=== PATIENT | male | born 1975 | race Caucasian/White ===

== ENCOUNTER 2019-08-30 14:14 | Emergency (ER) | payer SELFPAY ==
[~2019-08-30] VITALS: Ht 190.5 cm; Wt 204.1 kg
[2019-08-30 14:35] VITALS: BP 175/84
--- NOTE | 2019-08-30 14:37 | NUR ---
ED Nurse Note: Pt ambulated to ED d/t cough and sore throat x 2 days. VSS, on RA. ERPA on bedside.
[2019-08-30] MEDS ORDERED: Azithromycin 250mg tab ORAL ONE (14:45)
[2019-08-30] MEDS ORDERED: Oseltamivir 75mg cap ORAL SCH (14:45)
[2019-08-30] MEDS: Albuterol/Ipratropium 3ml neb HHN SCH ×2 (14:55→15:05)
--- NOTE | 2019-08-30 14:55 | NUR ---
ED Nurse Note: RT at bedside.
--- NOTE | 2019-08-30 15:48 | Diagnostic Imaging Report ---
Indication: Dyspnea Comparison: None A single view chest radiograph was obtained. Findings: Mild pulmonary vascular congestion demonstrated. The heart is enlarged. Bones are unremarkable. No pleural effusion seen. IMPRESSION: Suspected mild CHF
--- NOTE | 2019-08-30 15:50 | Emergency Room Report ---
History of Present Illness General Chief Complaint: Upper Respiratory Illness Source: Patient Present Illness HPI 43-year-old morbidly obese male who claims to have no significant past medical history and heavy tobacco smoker here complaining of 2 days of generalized body ache, cough and congestion. Complains of phlegm production and wheezing. Is requesting breathing treatment. Patient also complains of 2 weeks of suprapubic rash that started after being in the [facility]. Denies recent travel. Is in no apparent distress. Also reports that he has not been seen by primary doctor in many years. Is requesting something to help him sleep. I explained to patient that patient may be having sleep apnea secondary to morbid obesity and is not advised to take any sleeping medication as may mask his breathing being compromised and be dangerous toward him. Patient agrees. Denies abdominal pain, nausea vomiting at this time. Has not taken medication for symptom relief. Allergies: Coded Allergies: No Known Allergies (Unverified , 08/30/19) Patient History Past Medical History: see triage record Past Surgical History: unable to obtain Pertinent Family History: none Social History: Reports: smoking Immunizations: UTD Reviewed Nursing Documentation: PMH: Agreed; PSxH: Agreed Nursing Documentation-PMH Past Medical History: No History, Except For Review of Systems All Other Systems: negative except mentioned in HPI Physical Exam Vital Signs Date Time Temp Pulse Resp B/P (MAP) Pulse Ox O2 Delivery O2 Flow Rate FiO2 08/30/19 14:28 98.4 75 20 175/84 (114) 94 Room Air 08/30/19 14:59 21 Sp02 EP Interpretation: reviewed, normal General Appearance: alert, GCS 15, non-toxic, mild distress, obese Head: normocephalic, atraumatic ENT: hearing grossly normal, normal pharynx, no angioedema, normal voice Neck: full range of motion, supple/symm/no masses Respiratory: chest non-tender, lungs clear, normal breath sounds, no rhonchi, no respiratory distress, no wheezing, speaking full sentences Cardiovascular #1: regular rate, rhythm, no edema, no murmur Gastrointestinal: normal bowel sounds, non tender, soft, non-distended, no guarding, no rebound Genitourinary: no CVA tenderness, other - Folliculitis of suprapubic region is noted Musculoskeletal: back normal, no calf tenderness Psychiatric: judgement/insight normal Skin: other - Folliculitis suprapubic Lymphatic: no adenopathy Medical Decision Making PA Attestation All diagnoses and treatment plans were reviewed and discussed with my supervising physician Dr. Juarez Diagnostic Impression: Primary Impression: Pneumonitis Additional Impressions: Fungal infection Folliculitis Cardiomegaly ER Course 43-year-old morbidly obese male who claims to have no significant past medical history and heavy tobacco smoker here complaining of 2 days of generalized body ache, cough and congestion. Complains of phlegm production and wheezing. Is requesting breathing treatment. Patient also complains of 2 weeks of suprapubic rash that started after being in the [facility]. Denies recent travel. Is in no apparent distress. Also reports that he has not been seen by primary doctor in many years. Is requesting something to help him sleep. I explained to patient that patient may be having sleep apnea secondary to morbid obesity and is not advised to take any sleeping medication as may mask his breathing being compromised and be dangerous toward him. Patient agrees. Denies abdominal pain, nausea vomiting at this time. Has not taken medication for symptom relief. Ddx considered but are not limited to: bronchitis, PNA, URI viral, bacterial bronchitis, pneumonitis, folliculitis, urinary tract infection, STD Vital signs: are WNL, pt. is afebrile H&PE are most consistent with: Incidental finding of cardiomegaly, pneumonitis, folliculitis secondary to bacterial and fungal infection of the suprapubic area ORDERS: Chest x-ray, Bactrim DS, azithromycin, Phenergan DM, albuterol inhaler, prednisone, Diflucan ED INTERVENTIONS: Prednisone, 3 treatments of albuterol ipratropium breathing treatment DISCHARGE: At this time pt. is stable for d/c to home. Will provide printed patient care instructions, and any necessary prescriptions. Care plan and follow up instructions have been discussed with the patient prior to discharge. Patient to follow-up primary care provider, increase oral hydration, at this time no urine sample needed as patient lesions are located in the suprapubic and patient denies any urinary symptoms. Also follow-up with foundation director regarding cardiomegaly Chest X-Ray Diagnostic Results Chest X-Ray Diagnostic Results : Chest X-Ray Ordered: Yes Indication: Other - Cough EP Interpretation: Yes ALEX Xray: Interpretation reviewed, by supervising MD, and agrees with findings. Interpretation: no consolidation, no effusion, no pneumothorax Impression: No acute disease Electronically Signed by: Clari JOHNSON Sc[employer] Text Cardiomegaly noted Last Vital Signs Date Time Temp Pulse Resp B/P (MAP) Pulse Ox O2 Delivery O2 Flow Rate FiO2 08/30/19 14:59 71 20 92 Room Air 21 08/30/19 14:35 98.4 175/84 Disposition: HOME, SELF-CARE Condition: Stable Scripts Prednisone* (PREDNISONE*) 20 Mg Tablet 40 MG ORAL DAILY for 5 Days, #10 TAB Prov: Clari Mhaajan 08/30/19 Albuterol Sulfate (VENTOLIN HFA) 18 Gm Hfa.aer.ad 2 PUFFS INH EVERY 6 HOURS, #18 GM 0 Refills Prov: Clari Mahajan 08/30/19 Promethazine/Dextromethorphan (Promethazine-Dm Syrup) 473 Ml Syrup 1 TSP ORAL Q6H PRN for For Cough, #118 ML 0 Refills Prov: Clari Mahajan 08/30/19 Fluconazole (FLUCONAZOLE) 100 Mg Tablet 100 MG ORAL DAILY, #7 TAB 0 Refills Prov: Clari Mahajan 08/30/19 Azithromycin* (ZITHROMAX*) 250 Mg Tablet 250 MG ORAL DAILY, #6 TAB 0 Refills Take two tables once daily for 1 day, then one tablet once daily for 4 days. Prov: Clari Mahajan 08/30/19 Trimethoprim/Sulfamethoxazole 160/800* (BACTRIM DS TABLET*) 1 Each Tablet 1 TAB ORAL TWICE A DAY for 7 Days, #14 TAB Prov: Clari Mahajan 08/30/19 Referrals: NOT CHOSEN IPA/,REFERRING (PCP) Patient Instructions: Folliculitis, Pneumonitis Additional Instructions: Take medication as directed, follow-up with your primary care provider, increase oral hydration, avoid exposure to moist areas. If worsening symptoms return to the emergency room Clari Mahajan Aug 30, 2019 15:50
[2019-08-30] MEDS ORDERED: BACTRIM DS TAB1 EAC1 ORAL (15:57)
[2019-08-30] MEDS ORDERED: FLUCONAZOLE100 MG ORAL (15:57)
[2019-08-30] MEDS ORDERED: PHENERGAN6.25 MG/5 ORAL (15:57)
[2019-08-30] MEDS ORDERED: PREDNISONE20 MG ORAL (15:57)
[2019-08-30] MEDS ORDERED: VENTOLIN HFA18 GM INH (15:57)
[2019-08-30] MEDS ORDERED: ZITHROMAX250 MG ORAL (15:57)
[2019-08-30 16:03] VITALS: BP 175/84
== END 2019-08-30 16:03 | disposition home or self-care (01) ==
LOC: EMR 14:50
DX: J18.9 Pneumonia, unspecified organism (principal); I51.7 Cardiomegaly; L73.9 Follicular disorder, unspecified; B49 Unspecified mycosis; F17.200 Nicotine dependence, unspecified, uncomplicated
CPT/HCPCS: 71045; 99284; J7512; J7620